=== PATIENT | female | born 1955 | race Caucasian/White ===

== ENCOUNTER → 2017-01-08 | Outpatient (CLI) | payer OTHER | LOC: HEART 5 07:42 | DX: R07.9 Chest pain, unspecified (principal); E78.5 Hyperlipidemia, unspecified; I10 Essential (primary) hypertension; R60.9 Edema, unspecified; R00.2 Palpitations; R06.02 Shortness of breath | CPT/HCPCS: 78452; 93306; A9502; J2785 ==